=== PATIENT | female | born 1980 | race Caucasian/White ===

== ENCOUNTER 2021-04-24 18:25 | Emergency (ER) | payer SELFPAY ==
[2021-04-24] MEDS ORDERED: Ketorolac Tromethamine 30 MG/ML VIAL ONE (19:51)
== END 2021-04-24 20:09 | disposition home or self-care (01) ==
LOC: ERS 18:25
DX: M54.50 Low back pain, unspecified (principal); F43.0 Acute stress reaction; F17.290 Nicotine dependence, other tobacco product, uncomplicated
CPT/HCPCS: 96372; 99284; J1885